=== PATIENT | female | born 1980 | race African-American/Black ===

== ENCOUNTER 2017-04-16 07:18 | Outpatient (CLI) | payer SELFPAY | END 2017-04-16 07:19 | disposition home or self-care (01) | LOC: BICMAMMO 07:18 | DX: R92.8 Other abnormal and inconclusive findings on diagnostic imaging of breast (principal) | CPT/HCPCS: G0206-RT; G0279 ==

== ENCOUNTER 2021-01-24 08:44 | Emergency (ER) | payer MEDICAID, SELFPAY ==
[2021-01-24] MEDS ORDERED: Acetaminophen 500 MG TAB ONE (09:18)
== END 2021-01-24 10:15 | disposition home or self-care (01) ==
LOC: ERS 08:44
DX: U07.1 COVID-19 (principal); I10 Essential (primary) hypertension
CPT/HCPCS: 99283

== ENCOUNTER 2024-02-21 11:03 | Emergency (ER) | payer OTHER, SELFPAY ==
[2024-02-21] MEDS ORDERED: Acetaminophen 325 MG TAB ONE (11:28)
== END 2024-02-21 12:55 | disposition home or self-care (01) ==
LOC: ERS 11:03
DX: S29.012A Strain of muscle and tendon of back wall of thorax, initial encounter (principal); S70.01XA Contusion of right hip, initial encounter; I10 Essential (primary) hypertension; V89.2XXA Person injured in unspecified motor-vehicle accident, traffic, initial encounter
CPT/HCPCS: 72072; 99283